=== PATIENT | female | born 1950 | race Caucasian/White ===

== ENCOUNTER 2025-03-21 01:16 | Emergency (ER) | payer MEDICARE, SELFPAY ==
[2025-03-21 01:25] VITALS: BP 167/84; PULSE 86; RESP 18; TEMP 37.2; O2SAT 95; BMI 46.9
--- NOTE | 2025-03-21 01:34 | CRLHL7_ITS ---
For Patients: As a result of the Century Cures Act, medical imaging exams and procedure reports are released immediately into your electronic medical record. You may view this report before your referring provider. If you have questions, please contact your health care provider. Indication: Diffuse pain, history of CLL Technique: CT through the abdomen and pelvis following 118 mL Isovue 370 IV contrast Comparison: None Findings: Lower chest: Bibasilar atelectasis and/or scarring. Few small pulmonary nodules noted measuring up to 4 millimeters, no dedicated follow-up recommended. Hepatobiliary: No significant parenchymal abnormality is appreciated. Benign hepatic cysts noted. Cholecystectomy. Spleen: Lobulated spleen, otherwise unremarkable. Pancreas: No acute parenchymal abnormality is appreciated. Adrenal glands: No acute abnormality appreciated. Kidneys: No significant parenchymal abnormality appreciated. No visualized calculi. No hydronephrosis. Bowel: No obstruction. Duodenal wall thickening with adjacent stranding and fluid, adjacent to the pancreatic head and uncinate process. The appendix is visualized and appears unremarkable. Vascular: Calcified atherosclerosis. Lymph nodes: No gross lymphadenopathy. Peritoneum: Upper mesenteric fluid. : No acute abnormality appreciated. Soft tissues: No acute abnormality appreciated. Bones: No acute fracture. No lytic or blastic lesion. Degenerative changes of the spine and pelvis. Impression: There is stranding and free fluid noted in the upper mesentery. This is adjacent to the pancreatic head and uncinate process as well as the distal duodenum, with the duodenum demonstrating mild wall thickening and stranding. Differential includes duodenitis versus pancreatitis of the head and uncinate process. No other acute abnormality appreciated. Please note that all CT scans at this facility use dose modulation, iterative reconstruction, and/or weight-based dosing when appropriate to reduce radiation dose to as low as reasonably achievable. Dictated by Russell Traore MD @ 03/21/2025 2:29:36 AM (Electronically Signed)
--- NOTE | 2025-03-21 01:37 | ED_ITS ---
HPI - General Adult General Date Seen: 03/21/25 Chief complaint: Abdominal Pain Stated complaint: stomach pain Time Seen by Provider: 03/21/25 01:21 History of Present Illness HPI narrative: Patient is a 74-year-old woman here with her for evaluation of diffuse burning abdominal pain with radiation to the back that started several hours prior to coming in. She has no prior history of similar pain, denies any other symptoms such as nausea, vomiting, diarrhea, constipation, urinary symptoms, chest pain, difficulty breathing, fevers, etcetera. She has a history of cholecystectomy, no other abdominal surgeries. She has a history of diabetes, CLL. Other medical history reviewed. She typically gets her care at [facility], has never been here before but says that she does not like [place] so they came here tonight instead. No medications taken at home. She does not smoke and says she never drinks. Related Data Home Medications ?Medication ?Instructions ?Recorded ?Confirmed aspirin 81 mg capsule 81 mg PO DAILY 03/21/25 03/21/25 atenolol 50 mg tablet 50 mg PO DAILY 03/21/25 03/21/25 atorvastatin 20 mg tablet 20 mg PO QHS 03/21/25 03/21/25 chlorthalidone 25 mg tablet 25 mg PO DAILY 03/21/25 03/21/25 Previous Rx's ?Medication ?Instructions ?Recorded omeprazole 40 mg capsule,delayed 40 mg PO DAILY #30 caps 03/21/25 release Allergies Allergy/AdvReac Type Severity Reaction Status Date / Time metformin AdvReac Intermediate Diarrhea Verified 03/21/25 01:29 hydromorphone AdvReac Mild Nausea/Vomi Verified 03/21/25 01:29 ting Review of Systems Status of ROS: Reports: 10 or more systems reviewed and unremarkable except as noted in History and below [facility] Medical History (Updated 03/21/25 @ 02:37 by Kortney Jones MD) Type 2 diabetes mellitus without complication, without long-term current use of insulin ?E11.9 - Type 2 diabetes mellitus without complications (ICD-10) Chronic lymphocytic leukemia of 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 having achieved remission ?C91.10 - Chronic lymphocytic leukemia of 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 having achieved remission (ICD-10) Osteoarthritis of knees, bilateral ?M17.0 - Bilateral primary osteoarthritis of knee (ICD-10) 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 - Small cell B-cell lymphoma, unspecified site (ICD-10) PONV (postoperative nausea and vomiting) ?R11.2 - Nausea with vomiting, unspecified (ICD-10) ?Z98.890 - Other specified postprocedural states (ICD-10) Morbid obesity ?E66.01 - Morbid (severe) obesity due to excess calories (ICD-10) Hypertension ?I10 - Essential (primary) hypertension (ICD-10) Hyperlipidemia ?E78.5 - Hyperlipidemia, unspecified (ICD-10) Surgical History History of revision of total knee arthroplasty ?Z96.659 - Presence of unspecified artificial knee joint (ICD-10) History of total knee arthroplasty ?Z96.659 - Presence of unspecified artificial knee joint (ICD-10) History of joint replacement ?Z96.60 - Presence of unspecified orthopedic joint implant (ICD-10) History of colonoscopy ?Z98.890 - Other specified postprocedural states (ICD-10) History of cholecystectomy ?Z90.49 - Acquired absence of other specified parts of digestive tract (ICD- 10) History of cataract surgery ?Z98.49 - Cataract extraction status, unspecified eye (ICD-10) Social History Smoking Status: Never smoker Second hand tobacco smoke exposure: No How often do you have a drink containing alcohol: never AUDIT-C Alcohol total score: 0 Non-prescribed substance use: denies use Exam Narrative: Exam Narrative: Vital signs reviewed In general, alert, nontoxic Elderly woman. She looks comfortable. Head: Normocephalic, atraumatic. Eyes: Sclera clear. Pupils equal and reactive. ENT: Mucous membranes moist. Neck: Supple without adenopathy. Heart: Regular rate and rhythm without murmur. Lungs: Clear. No increased work of breathing, crackles or wheezes. Abdomen: Soft, nontender to palpation. No distention, normal bowel sounds. No rebound guarding or rigidity. Extremities: Well perfused, pulses intact. No significant edema. Neurologic: Alert, conversant. Speech fluent, face symmetric. Moves all extremities equally. Skin: Warm, dry well perfused. Affect: Normal. Const: Vital Signs, click to edit/add: Vital Signs - 24 hr 03/21/25 01:25 03/21/25 01:47 03/21/25 02:06 Temperature 99.0 F Pulse Rate 85 Pulse Rate [Pulse Oximeter] 86 Respiratory Rate 18 18 Blood Pressure 138/94 H Blood Pressure [Ri ght Upper Arm] 167/84 H Pulse Oximetry 95 95 94 Oxygen Delivery Me thod Room Air 03/21/25 02:08 Temperature 99.0 F Pulse Rate Pulse Rate [Pulse Oximeter] 84 Respiratory Rate 18 Blood Pressure Blood Pressure [Ri ght Upper Arm] 145/95 H Pulse Oximetry 95 Oxygen Delivery Me thod Room Air Course Course ED Course: An IV was placed, she was given 15 mg of Toradol, 500 mL of normal saline and 4 mg of Zofran. I ordered basic labs including a lipase, LFTs, UA was done as well. CT scan of the abdomen was done in addition. Diagnostic considerations would include retained gallstone, pancreatitis, gastritis or perforated viscus, diverticulitis, kidney stone, appendicitis, bowel obstruction among others. Her labs were notable for mildly elevated white blood cell count of 13.8 with the left shift with 83% neutrophils. Her hemoglobin was normal. Metabolic panel was normal LFTs were normal. CRP mildly elevated at 5.3. Urinalysis was notable for 10-25 white blood cells, moderate squames and sediment. Difficult to interpret this in the absence of any urinary symptoms. I reviewed her CT scan, she had some stranding near the pancreas, but her lipase was normal, radiology read her CT as showing stranding of the pancreas and the duodenum with a differential to include duodenitis or pancreatitis. Overall, symptoms I think are more suggestive of duodenitis, I have given her some Protonix here as well as a GI cocktail, have discussed that right now I suspect duodenitis rather than pancreatitis, but we reviewed reasons to return such as worsening or severe pain, vomiting, fevers etcetera. I have given her prescription for Prilosec. Recommend primary care follow-up in a week or 2 for recheck, endoscopy recommended if not improving. Return to the ER at any time for worsening. [place] diet, avoidance of GI triggers such as NSAIDs, alcohol etcetera. Vital Signs Vital signs: Initial Vital Signs Temperature 99.0 F 03/21/25 01:25 Temperature Source Temporal Artery Scan 03/21/25 01:25 Pulse Rate 86 03/21/25 01:25 Pulse Rhythm Regular 03/21/25 01:25 Respiratory Rate 18 03/21/25 01:25 Blood Pressure 167/84 H 03/21/25 01:25 Blood Pressure Mean 111 H 03/21/25 01:25 Blood Pressure Position Sitting 03/21/25 01:25 Pulse Oximetry 95 03/21/25 01:25 Oxygen Delivery Method Room Air 03/21/25 01:25 Vital Signs Temperature 99.0 F 03/21/25 01:25 Pulse Rate 86 03/21/25 01:25 Respiratory Rate 18 03/21/25 01:25 Blood Pressure 167/84 H 03/21/25 01:25 Pulse Oximetry 95 03/21/25 01:25 Oxygen Delivery Method Room Air 03/21/25 01:25 Temperature 99.0 F 03/21/25 02:08 Pulse Rate 84 03/21/25 02:08 Respiratory Rate 18 03/21/25 02:08 Blood Pressure 145/95 H 03/21/25 02:08 Pulse Oximetry 95 03/21/25 02:08 Oxygen Delivery Method Room Air 03/21/25 02:08 Medications Administered Medications: Generic Name Dose Route Start Last Admin Trade Name Freq PRN Reason Stop Dose Admin Lidocaine/Aluminum/Magnesium/Simeth 30 ml 03/21/25 02:31 03/21/25 02:38 Gi Cocktail (Visc Lido/Antacid) 30 Ml PO 03/21/25 02:32 30 ml ONCE ONE Administration Ondansetron HCl 4 mg 03/21/25 02:02 03/21/25 02:05 Ondansetron 2 Mg/Ml Inj IVP 03/21/25 02:03 4 mg ONCE ONE Administration Pantoprazole Sodium 40 mg 03/21/25 02:30 03/21/25 02:38 Pantoprazole Sodium 40 Mg Inj IVP 03/21/25 02:31 40 mg ONCE ONE Administration Discontinued Medications Generic Name Dose Route Start Last Admin Trade Name Freq PRN Reason Stop Dose Admin Sodium Chloride 500 mls @ 500 mls/hr 03/21/25 01:34 03/21/25 02:24 0.9 % Sodium Chloride 500 Ml IV 03/21/25 02:33 Infused .Q1H ONE Infusion Ketorolac Tromethamine 15 mg 03/21/25 01:34 03/21/25 01:40 Ketorolac 15 Mg/Ml Inj IVP 03/21/25 01:35 15 mg ONCE ONE Administration Medical Decision Making Lab Data Labs: Lab Results 03/21/25 03/21/25 03/21/25 Range/Units 01:40 01:45 02:00 WBC 13.78 H (4.50-11.00) K/uL RBC 4.42 (4.00-5.20) m/uL Hgb 14.4 (12.0-16.0) gm/dL Hct 43.9 (33.0-51.0) % MCV 99 (80-100) fL MCH 33 (26-34) pg MCHC 33 (32-36) gm/dL RDW Coeff of [place] 15.0 (11.5-15.5) % Plt Count 378 (140-440) K/uL Neut % (Auto) 83.1 H (42.0-72.0) % Lymph % (Auto) 7.2 L (20-44) % [place] % (Auto) 7.2 (0.0-11.0) % Eos % (Auto) 1.7 (0.0-7.0) % Baso % (Auto) 0.4 (0.0-3.0) % Neut # (Auto) 11.50 H (1.7-7.0) K/uL Lymph # (Auto) 1.00 (0.90-2.90) K/uL [place] # (Auto) 1.00 H (0.00-0.90) K/UL Eos # (Auto) 0.20 (0.00-0.50) K/uL Baso # (Auto) 0.10 (0.00-0.30) K/uL Abs Immat Gran (auto) 0.10 (0.00-0.30) K/uL Imm/Tot Granulo (auto) 0.4 % Sodium 136 (135-149) mmol/L Potassium 4.0 (3.6-5.1) mmol/L Chloride 99 (96-114) mmol/L Carbon Dioxide 29 (20-32) mmol/L Anion Gap 8 (7-15) mEq/L BUN 18 (7-30) mg/dL Creatinine 0.7 (0.5-1.5) mg/dL Estimated Creat Clear 34.38 Estimated GFR 90 ml/min Glucose 131 H (60-115) mg/dL Lactate 1.8 (0.5-1.9) mmol/L Calcium 9.6 (8.4-10.6) mg/dL Total Bilirubin 1.2 (0.1-1.5) mg/dL Direct Bilirubin 0.4 (0.0-0.5) mg/dL AST 30 (12-35) U/L ALT 20 (4-35) U/L Alkaline Phosphatase 94 (40-150) U/L C-Reactive Protein 5.3 H (0.5-1.0) mg/dL Total Protein 7.3 (6.0-8.3) g/dL Albumin 4.4 (3.3-5.0) g/dL Lipase 224 (23-300) U/L Urine Color Yellow (Yellow) Urine Appearance Cloudy A (Clear) Urine pH 8.0 (5.0-8.5) Ur Specific [place] 1.015 (1.000-1.030) Urine Protein Negative (Negative) Urine Glucose (UA) Negative (Negative) Urine Ketones Negative (Negative) Urine Blood Trace-intact A (Negative) Urine Nitrite Negative (Negative) Urine Bilirubin Negative (Negative) Urine Urobilinogen 1.0 (0.2-1.0) Ur Leukocyte Esterase 2+ A (Negative) Urine RBC 0-2 (0-2) Urine WBC 10-25 A (0-5) Ur Squamous Epith Cells Moderate A (None-Few) Amorphous Sediment Few A (None) Urine Bacteria Moderate A (None) POC Creatinine 0.8 (0.6-1.3) mg/dl Imaging Data CT scan - abdomen: Attestation: I have reviewed the pertinent imaging results. Radiologist's impression: Patient: Nora Hernandez MR#: [id number] : 1950 Acct:[id number] Loc: ED Service Date: 03/21/[address]: Ordering Physician: Kortney Jones M.D. Date of Service: 03/21/25 Procedure(s): CT abdomen pelvis w con Accession Number(s): [id number] cc: Kortney Jones M.D.; Jagruti Angelo M.D.~ For Patients: As a result of the Cures Act, medical imaging exams and procedure reports are released immediately into your electronic medical record. You may view this report before your referring provider. If you have questions, please contact your health care provider. Indication: Diffuse pain, history of CLL Technique: CT through the abdomen and pelvis following 118 mL Isovue 370 IV contrast Comparison: None Findings: Lower chest: Bibasilar atelectasis and/or scarring. Few small pulmonary nodules noted measuring up to 4 millimeters, no dedicated follow-up recommended. Hepatobiliary: No significant parenchymal abnormality is appreciated. Benign hepatic cysts noted. Cholecystectomy. Spleen: Lobulated spleen, otherwise unremarkable. Pancreas: No acute parenchymal abnormality is appreciated. Adrenal glands: No acute abnormality appreciated. Kidneys: No significant parenchymal abnormality appreciated. No visualized calculi. No hydronephrosis. Bowel: No obstruction. Duodenal wall thickening with adjacent stranding and fluid, adjacent to the pancreatic head and uncinate process. The appendix is visualized and appears unremarkable. Vascular: Calcified atherosclerosis. Lymph nodes: No gross lymphadenopathy. Peritoneum: Upper mesenteric fluid. : No acute abnormality appreciated. Soft tissues: No acute abnormality appreciated. Bones: No acute fracture. No lytic or blastic lesion. Degenerative changes of the spine and pelvis. Impression: There is stranding and free fluid noted in the upper mesentery. This is adjacent to the pancreatic head and uncinate process as well as the distal duodenum, with the duodenum demonstrating mild wall thickening and stranding. Differential includes duodenitis versus pancreatitis of the head and uncinate process. No other acute abnormality appreciated. Please note that all CT scans at this facility use dose modulation, iterative reconstruction, and/or weight-based dosing when appropriate to reduce radiation dose to as low as reasonably achievable. Dictated by Russell Traore MD @ 03/21/2025 2:29:36 AM Discharge Plan Discharge Clinical Impression: Duodenitis Patient Disposition: Home, Self-Care Condition: Improved Instructions: Duodenitis (ED) Additional Instructions: I am recommending that you start a medicine called Prilosec, which is an acid reducing medicine that helps with inflammation in the upper GI tract such as gastritis or duodenitis. Please make an appointment to follow-up with your primary doctor in the next week or 2. If your symptoms are improving, you may not need further evaluation, but if not, an upper endoscopy can be arranged through your primary doctor. I suspect that your symptoms are related to duodenitis, as of right now I do not have specific reason to suspect pancreatitis. However, if your pain worsens or becomes severe, if you have vomiting, if you vomit blood, have high fevers, or worsened in any significant way, please return to the emergency department at any time. Keep your diet fairly bland over the next few days. Avoid ears for gastritis/duodenitis such as ibuprofen or other NSAIDs, alcohol, and any dietary triggers that seem to worsen your abdominal pain. Prescriptions: New omeprazole 40 mg capsule,delayed release(DR/EC) 40 mg PO DAILY Qty: 30 2RF No Action chlorthalidone 25 mg tablet 25 mg PO DAILY atorvastatin 20 mg tablet 20 mg PO QHS atenolol 50 mg tablet 50 mg PO DAILY aspirin 81 mg capsule 81 mg PO DAILY Follow Up/Referrals: Jagruti Angelo MD [Primary Care Provider] - Stand Alone Forms: fitogram Info Instructions
[2025-03-21] MEDS: 0.9 % SODIUM CHLORIDE 500 ML 500 ML IV (01:40)
[2025-03-21] MEDS: KETOROLAC 15 MG/ML inj IVP (01:40)
[2025-03-21 01:47] VITALS: O2SAT 95
[2025-03-21 01:47] LABS: Creatinine, Point-of-Care* 0.8 mg/dl (0.6-1.3)
[2025-03-21 01:48] LABS: Basophils Percent Auto 0.4 % (0.0-3.0); Eosinophils Percent Auto 1.7 % (0.0-7.0); Hematocrit* 43.9 % (33.0-51.0); Hemoglobin* 14.4 gm/dL (12.0-16.0); Immature Granulocytes Pct Auto 0.4 %; Lymphocytes Percent Auto 7.2 % (20-44); Mean Corpuscular HGB Conc 33 gm/dL (32-36); Mean Corpuscular Hemoglobin 33 pg (26-34); Mean Corpuscular Volume 99 fL (80-100); Monocytes Percent Auto 7.2 % (0.0-11.0); Neutrophils Percent Auto 83.1 % (42.0-72.0); Platelet Count* 378 K/uL (140-440); Red Blood Count* 4.42 m/uL (4.00-5.20); White Blood Count* 13.78 K/uL (4.50-11.00)
[2025-03-21 01:49] LABS: Lactate Sepsis w/Reflex* 1.8 mmol/L (0.5-1.9)
--- OUTSIDE RECORDS SUMMARY | 2025-03-21 01:55 | XMS_ITS | Clinical Summary ---
Author Organization [facility] Address [address] [place] [id number] Care Team Providers Care Linter Saw Sharpener Name Role Phone Jagruti Angelo MD Primary Care Provider [phone] Allergies Active Allergy Reactions Criticality Noted Date Comments Hydromorphone Nausea And Vomiting 07/16/2013 Metformin Diarrhea 03/13/2025 Medications ASCORBATE CALCIUM (VITAMIN C ORAL) Take 500 mg by mouth once daily. Active Calcium-Cholecalc iferol, D3, (CALCIUM 600 WITH VITAMIN D3) 600 mg(1,500mg) -400 unit cap Take 1 Cap by mouth once daily. Active aspirin (ECOTRIN) 81 mg enteric coated tablet Take 81 mg by mouth once daily with a meal. Active blood-glucose meterIndications: Prediabetes As directed. Dispense meter, #100 test strips with 3 refills, #100 lancets with 3 refills. covered by pt ins. Prediabetes , testing 1x daily 1 Each 07/20/20 22 Active Accu-Chek Guide Glucose Meter use to test blood sugar once daily 07/21/20 22 Active ketoconazole 2% shampoo (NIZORAL) 2 % shampooIndication s:Seborrheic dermatitis 2-3 times per week: lather on to damp scalp, leave on for 5-10 minutes, then rinse out well with water. 120 mL 11 08/04/20 23 Active lancets (Accu-Chek Softclix Lancets)Indicatio ns:Type 2 diabetes mellitus without complication, without long-term current use of insulin (HC) USE TO TEST BLOOD SUGAR ONCE DAILY 100 Each 12/13/19 Active blood sugar diagnostic (Accu-Chek Guide test strips) stripIndications: Type 2 diabetes mellitus without complication, without long-term current use of insulin (HC) USE TEST BLOOD SUGAR ONCE DAILY 100 Each 12/13/19 Active chlorthalidone 25 mg tabletIndications :HTN (hypertension) Take 1 Tablet (25 mg) by mouth once daily. 90 Tablet 1 03/13/20 25 Active atenoloL 50 mg tabletIndications :HTN (hypertension) Take 1 Tablet (50 mg) by mouth once daily. 90 Tablet 1 03/13/20 25 Active atorvastatin 20 mg tabletIndications :Mixed hyperlipidemia Take 1 Tablet (20 mg) by mouth at bedtime. 100 Tablet 03/18/20 25 Active atenoloL (TENORMIN) 50 mg tabletIndications :HTN (hypertension) Take 1 Tablet (50 mg) by mouth once daily. 90 Tablet 3 01/31/20 24 025 Discontinued atorvastatin (LIPITOR) 10 mg tabletIndications :Mixed hyperlipidemia Take 1 Tablet (10 mg) by mouth at bedtime. 90 Tablet 3 01/31/20 24 025 Discontinued(R eorder (E-cancel not sent)) chlorthalidone (HYGROTON) 25 mg tabletIndications :HTN (hypertension) Take 1 Tablet (25 mg) by mouth once daily. 90 Tablet 3 01/31/20 24 025 Discontinued(R eorder (E-cancel not sent)) atenoloL 50 mg tabletIndications :HTN (hypertension) TAKE 1 TABLET BY MOUTH ONE TIME DAILY 90 Tablet 03/11/20 25 025 Discontinued(R eorder (E-cancel not sent)) atorvastatin 10 mg tabletIndications :Mixed hyperlipidemia Take 1 Tablet (10 mg) by mouth at bedtime. 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 8 Osteoarthritis of knee 07/03/2018 Hypertension 03/01/2018 Morbid obesity 03/01/2018 Prediabetes 12/28/2012 Cataract 09/22/2012 Resolved Problems Problem Noted Date Diagnosed Date Resolved Date HLD (hyperlipidemia) 03/01/2018 023 Hypercholesterolemia 09/22/2012 023 Osteoarthritis of knees, bilateral 04/04/2023 Encounters Date Type Department Care Team Description 03/13/2025 10:05 AM CDT Office Visit [facility] [id number] [place] [phone] Jagruti Angelo MD Medicare ANNUAL (subsequent) Visit (--Fasting); Screening (--colonoscopy) 03/13/2025 Travel 03/11/2025 Refill [facility] [id number] [place] [phone] Jagruti Angelo MD Refill Request (Atenolol) from Last 3 Months Immunizations Immunization Administration Dates Next Due COVID-19 vaccine (eTelemetry 30mcg/0.3mL) P F, MDV 11/16/2021 Pneumococcal Poly,23-Valent (Pneumovax) 08/07/20 19 Pneumococcal conj 13-Valent (Prevnar 13) 016 Td, Preservative Free (age >= 7 Years) 6 Tdap 04/28/2015 Zoster (Zostavax-ZVL, live) 12/05/2013 Family History Medical History Relation Name Comments Heart attack Brother 1 d/c MVA Coronary artery disease Brother 2 Other Father 96 y.o eat ing breakfast COPD Mother Cancer-breast Other MatCousin No Known Problems Sister 2 Relation Name Status Comments Brother 1 Brother 2 Father Mother Other MatCousin Alive Sister 1 Sister 2 Social History Tobacco Use Types Packs/Day Years Used Date Smoking Tobacco: Never Smokeless Tobacco: Never Alcohol Use Standard Drinks/Week Comments Not Currently 0 (1 standard drink = 0.6 oz pur e alcohol) PHQ-2 Answer Date Recorded PHQ-2 TOTAL SCORE 0 03/13/2025 Social Connections Answer Date Recorded Do you often feel lonely or isolated from those around you? 0 03/13/2025 Financial Resource Strain Answer Date R ecorded Difficulty of Paying Living Expenses 3 03/13/2025 Difficulty of Paying Living Expenses Not on file 03/13/2025 Food Insecurity Answer Date Recorded Do you worry your food will run out before you are able to buy more? 1 03/13/2025 Transportation Needs Answer Date Record ed Does lack of transportation keep you from medica l appointments? 1 03/13/2025 Does lack of transportation keep you from work, meetings or getting things that you need? 1 03/13/2025 Housing Stability Answer Date Recorded What is your housing situation today? 1 03/13/2025 Utilities Answer Date Recorded Do you have trouble paying f or utilities (for example, heat, electricity, water, phone)? 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 Gender Identity Not on file Sexual Orientation Not on file Obstetrics History Para Term AB IAB SAB Ectopic Multiple Livin g Live Births 3 3 Date Outcome GA Total Labor Labor/2nd/3rd Weight Sex Type Anes PTL Monserrat A1 A5 Name Clin Para Para Para Last Filed Vital Signs Vital Sign Reading Time Taken Comments Blood Pressure 136/76 03/13/2025 10:23 AM CDT Pulse 77 03/13/2025 9:51 AM CDT Temperature 36.2 C (97.2 F) 08/05/2024 8:19 AM CDT Respiratory Rate 16 08/05/2024 8:19 AM CDT Oxygen Saturation 96% 03/13/2025 9:51 AM CDT Inhaled Oxygen Concentration - - Weight 109 kg (240 lb 3.2 oz) 03/13/2025 9:51 AM CDT Height 152.5 cm (5' 0.04) 03/13/2025 9:51 AM CD T Body Mass Index 46.85 03/13/2025 9:51 AM CDT Plan of Treatment Health Maintenance Due Date Last Done Comments Hepatitis C screening for ag e 18-79 1968 Zoster (shingles) series for age 50+ (1 of 2) 01/30/2014 12/05/2013 RSV vaccine for adults or (1 - 1-dose 75+ series) 2023 COVID-19 vaccine series ( season) 2024 11/16/2021, 02/20/2021, 01/30/2021 Tetanus booster 04/28/2025 04/28/2015, 12/31/2005 Influenza Vaccine (Season Ended) 2025 BMI (ht and wt on same day) for age 18+ 03/13/2026 03/13/2025, 08/05/2024, 07/11/2024, Additional history exists Depression screening for age 12+ 03/13/2026 03/13/2025, 01/31/2024, 07/20/2022 Medicare Wellness for age 65+ 03/14/2026, 01/31/2024, 07/20/2022 Tdap Completed 04/28/2015 Pneumococcal series for age 50+ Completed 9, 08/31/2016 DEXA/DXA scan for age 65+ Completed 2023, 12/15/2020 (Verified in Care Everywhere or Patient Record) Medical Devices Implanted Type Area Television Program Director Device Identifier Shelf Expiration Date Model / Serial / Lot Cmnt Bone Simplex Hv Gentamicin - [id number] Implanted:Qty: 2 on 03/01/2018 by Paul Weber MD at [facility] Left: Knee [employer] 06/20/2019 6195-1-001 # / / [id number] Baseplate Tib Sz2.5 Lcs Complete Pe Nonpors - [id number] Implanted:Qty: 1 on 03/01/2018 by Paul Weber MD at [facility] Left: Knee [employer] 12/21/2027 5# / / [id number] Stem Knee [id number] Pfc Sigma Fluted - [id number] Implanted:Qty: 1 on 03/01/2018 by Paul Weber MD at [facility] Left: Knee [employer] 02/18/2027 [id number]# / / [id number] Augment Knee Lt Sz2.5 4mm Pfcsigma - [id number] Implanted:Qty: 1 on 03/01/2018 by Paul Weber MD at [facility] Left: Knee [employer] 10/20/2024 [id number]# / / [id number] Insert Knee Sz2.5 22.5mm Pfc Sigma Tc3 Rotating Platform - [id number] Implanted:Qty: 1 on 03/01/2018 by Paul Weber MD at [facility] Left: Knee [employer] 05/20/2022 [id number]# / / [id number] Adptr Knee 5 Deg Pfc Sigma Titnm - [id number] Implanted:Qty: 1 on 03/01/2018 by Paul Weber MD at [facility] Left: Knee [employer] 02/19/2028 96-0781# / / [id number] Adptr Fem [place] [employer] +2/-2 Offset - [id number] Implanted:Qty: 1 on 03/01/2018 by Paul Weber MD at [facility] Left: Knee [employer] 11/20/2027 96-0784# / / [id number] Sleeve Knee 31mm Mbt Univ Pors - [id number] Implanted:Qty: 1 on 03/01/2018 by Paul Weber MD at [facility] Left: Knee [employer] 01/18/2027 6# / / [id number] Fem Lt Sz2.5 Pfc Sigma Poststbz Co Cr - [id number] Implanted:Qty: 1 on 03/01/2018 by Paul Weber MD at [facility] Left: Knee [employer] 10/20/2027 96-0086# / / [id number] Augment Post Knee Sz2.5 4mm Pfc Sigma - [id number] Implanted:Qty: 1 on 03/01/2018 by Paul Weber MD at [facility] Left: Knee [employer] 07/21/2027 [id number]# / / [id number] Sleeve Knee 37mm Mbt Mobile [employer]earing Pors - [id number] Implanted:Qty: 1 on 03/01/2018 by Paul Weber MD at [facility] Left: Knee [employer] 10/20/2027 0# / / [id number] Stem Knee 66i91cf Pfc Sigma Fluted - [id number] Implanted:Qty: 1 on 03/01/2018 by Paul Weber MD at [facility] Left: Knee [employer] 05/20/2027 [id number]# / / [id number] Cmnt Bone Simplex Hv Gentamicin - [id number] Implanted:Qty: 2 on 07/12/2018 by Paul Weber MD at [facility] Right: Knee [employer] 01/18/2019 6195-1-001 # / / [id number] Augment Knee Rt Sz2.5 4mm Pfcsigma - [id number] Implanted:Qty: 1 on 07/12/2018 by Paul Weber MD at [facility] Right: Knee [employer] 05/20/2027 [id number]# / / [id number] Augment Knee Rt Sz2.5 4mm Pfcsigma - [id number] Implanted:Qty: 1 on 07/12/2018 by Paul Weber MD at [facility] Right: Knee [employer] 10/20/2027 [id number]# / / [id number] Adptr Knee 5 Deg Pfc Sigma Titnm - [id number] Implanted:Qty: 1 on 07/12/2018 by Paul Weber MD at [facility] Right: Knee [employer] 05/20/2028 96-0781# / / [id number] Sleeve Knee 37mm Mbt Mobile Bearing Pors - [id number] Implanted:Qty: 1 on 07/12/2018 by Paul Weber MD at [facility] Right: Knee [employer] 01/19/2028 0# / / [id number] Adptr Fem [employer] [employer] +2/-2 Offset - [id number] Implanted:Qty: 1 on 07/12/2018 by Paul Weber MD at [facility] Right: Knee [employer] 01/19/2028 96-0784# / / [id number] Baseplate Tib Sz2 Lcs Completepe Nonpors - [id number] Implanted:Qty: 1 on 07/12/2018 by Paul Weber MD at [facility] Right: Knee [employer] 12/21/2027 0# / / [id number] Fem Rt Sz2.5 Pfc Sigma Poststbz Co Cr - [id number] Implanted:Qty: 1 on 07/12/2018 by Paul Weber MD at [facility] Right: Knee [employer] 12/21/2027 96-0092# / / [id number] Stem Knee 64v90jo Pfc Sigma Fluted - [id number] Implanted:Qty: 1 on 07/12/2018 by Paul Weber MD at [facility] Right: Knee [employer] 04/20/2026 [id number]# / / [id number] Stem Knee 62y48ko Pfc Sigma Fluted - [id number] Implanted:Qty: 1 on 07/12/2018 by Paul Weber MD at [facility] Right: Knee [employer] 09/20/2027 [id number]# / / [id number] Description:[place] Stem F luted 75mm x 12 mm Sleeve Knee 31mm Mbt Univ Pors - [id number] Implanted:Qty: 1 on 07/12/2018 by Paul Weber MD at [facility] Right: Knee [employer] 11/20/2027 6# / / [id number] Augment Post Knee Sz2.5 4mm Pfc Sigma - [id number] Implanted:Qty: 1 on 07/12/2018 by Paul Weber MD at [facility] Right: Knee [employer] 09/20/2023 [id number]# / / [id number] Tib Insrt Rp Tc3 Sz2.5/17.5mm Gvf Implanted:Qty: 1 on 07/12/2018 by Paul Weber MD at [facility] Right: Knee [employer] 03/20/2022 [id number] / / [id number] Description:Sigma Tibial Ins ert Totating Platform TC3 Size 2.5 17.5mm GVF Explanted Type Area Television Program Director Device Identifier Shelf Expiration Date Model / Serial / Lot Femoral And Tibial Components Explanted:Qty: 1 on 03/01/2018 by Paul Weber MD at [facility] Left: Knee 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 [employer] Component, Tibial Baseplate & Insert Explanted:Qty: 3 on 07/12/2018 by Paul Weber MD at [facility] Right: Knee Description:Nadya patella l eft in patient Procedures Procedure Name Priority Date/Time Associated Diagnosis Comments HEMOGLOBIN A1C MONITORING (POCT) Routine 03/13/2025 10:36 AM CDT Type 2 diabetes mellitus without complication, without long-term current use of insulin (HC) UA W/ SEDIMENT EXAM REFLEXED PER CRITERIA STAT 03/13/2025 10:36 AM CDT Urinary frequency COMP METABOLIC PANEL Routine 03/13/2025 10:34 AM CDT Type 2 diabetes mellitus without complication, without long-term current use of insulin (HC) LIPID PANEL W REFLEX MEASURED LDL Routine 03/13/2025 10:34 AM CDT Type 2 diabetes mellitus without complication, without long-term current use of insulin (HC) TSH WITH REFLEX Routine 03/13/2025 10:34 AM CDT Type 2 diabetes mellitus without complication, without long-term current use of insulin (HC) URINE CULTURE Routine 03/13/2025 10:32 AM CDT Urinary frequency URINE ALBUMIN TO CREATININE RATIO, RANDOM Routine 03/13/2025 10:32 AM CDT Type 2 diabetes mellitus without complication, without long-term current use of insulin (HC) XR DXA BONE DENSITY 2 SITES AXIAL Routine 01/31/2024 9:48 AM CDT Menopause from Last 3 Months or Most Recently Relevant to Health Maintenance Results * (ABNORMAL) UA W/ SEDIMENT EXAM REFLEXED PER CRITERIA (03/13/2025 10:36 AM CDT) COLOR YELLOW YELLOW [facility] (U APPEARANCE CLEAR CLEAR [facility] (U SPECIFIC GRAVITY 1.020 1.001 - 1.035 [facility] (U PH 7.0 5.0 - 8.0 [facility] (U GLUCOSE NEGATIVE NEGATIVE [facility] (U BILIRUBIN NEGATIVE NEGATIVE [facility] (U KETONES NEGATIVE NEGATIVE [facility] (U OCCULT BLOOD TRACE(A) NEGATIVE [facility] (U PROTEIN NEGATIVE NEGATIVE [facility] (U NITRITE NEGATIVE NEGATIVE [facility] (U LEUKOCYTE ESTERASE 1+(A) NEGATIVE [facility] (U WBC UA 0-5 < OR = 5 /HPF [facility] (U RBC UA 0-2 < OR = 2 /HPF [facility] (U SQUAMOUS EPITHELIAL CELLS UA 0-5 < OR = 5 /HPF [facility] (U BACTERIA UA FEW(A) NONE SEEN /HPF [facility] (U NOTE UA [facility] (U Comment: This urine was analyzed for the presence of WBC, RBC, bacteria, casts, and other formed elements. Only those elements seen were reported. Urine URINE SPECIMEN / Unknown 03/13/2025 10:36 AM CDT 03/13/2025 10:36 AM CDT Jagruti Angelo MD URINE Final Result [facility] [address] [place] [address], [facility] (U [address] [place] [address] * (ABNORMAL) HEMOGLOBIN A1C MONITORING (POCT) (03/13/2025 10:36 AM CDT) Pathologist [facility] POC HEMOGLOBIN A1C 6.4(H) <6.0 % OF TOTAL HGB [facility] (U Comment: Any point of care results exhibiting inconsistency with the patient's clinical status should be repeated using a different testing method. Blood BLOOD SPECIMEN / Unknown 03/13/2025 10:36 AM CDT 03/13/2025 10:36 AM CDT Jagruti Angelo MD CHEMISTRY Final Result [facility] [address] [place] [address], [facility] (U [address] [place] [address] * TSH WITH REFLEX (03/13/2025 10:34 AM CDT) Pathologist [facility] TSH W/REFLEX TO FT4 2.06 0.40 - 4.50 mIU/L [facility] Blood BLOOD SPECIMEN / Unknown 03/13/2025 10:34 AM CDT 03/13/2025 10:35 AM CDT Jagruti Angelo MD CHEMISTRY Final Result [facility] [address] [place] [address], [facility] [address] [place] [address] * (ABNORMAL) LIPID PANEL W REFLEX MEASURED LDL (03/13/2025 10:34 AM CDT) Pathologist [facility] CHOLESTEROL, TOTAL 178 <200 mg/dL [facility] HDL CHOLESTEROL 39(L) > OR = 50 mg/dL [facility] TRIGLYCERIDES 275(H) <150 mg/dL [facility] Comment: If a non-fasting specimen was collected, consider repeat triglyceride testing on a fasting specimen if clinically indicated. Felice et al. J. of Clin. Lipidol. 2015;9:129-169. LDL-CHOLESTEROL 100(H) mg/dL (calc) [facility] Comment: Reference range: <100 Desirable range <100 mg/dL for primary prevention; <70 mg/dL for patients with CHD or diabetic patients with > or = 2 CHD risk factors. LDL-C is now calculated using the Lucy calculation, which is a validated novel method providing better accuracy than the Friedewald equation in the estimation of LDL-C. Lopez DEXTER et al. RODDY. 2013;310(19): 0695-6186 (http://education.[employer]/faq/HTJ985) CHOL/HDLC RATIO 4.6 <5.0 (calc) [facility] NON HDL CHOLESTEROL 139(H) <130 mg/dL (calc) [facility] Comment: For patients with diabetes plus 1 major ASCVD risk factor, treating to a non-HDL-C goal of <100 mg/dL (LDL-C of <70 mg/dL) is considered a therapeutic option. Blood BLOOD SPECIMEN / Unknown 03/13/2025 10:34 AM CDT 03/13/2025 10:35 AM CDT Jagruti Angelo MD CHEMISTRY Final Result [facility] [address] [place] [address], [facility] [address] [place] [address] * (ABNORMAL) COMP METABOLIC PANEL (03/13/2025 10:34 AM CDT) [facility] GLUCOSE 107(H) 65 - 99 mg/dL [facility] Comment: Fasting reference interval For someone without known diabetes, a glucose value between 100 and 125 mg/dL is consistent with prediabetes and should be confirmed with a follow-up test. UREA NITROGEN (BUN) 17 7 - 25 mg/dL [facility] CREATININE 0.78 0.60 - 1.00 mg/dL [facility] EGFR 79 > OR = 60 mL/min/1. 73m2 [facility] BUN/CREATININE RATIO SEE NOTE: - (calc) [facility] Comment: Not Reported: BUN and Creatinine are within reference range. SODIUM 141 135 - 146 mmol/L [facility] POTASSIUM 4.1 3.5 - 5.3 mmol/L [facility] CHLORIDE 101 98 - 110 mmol/L [facility] CARBON DIOXIDE 30 20 - 32 mmol/L [facility] CALCIUM 9.8 8.6 - 10.4 mg/dL [facility] PROTEIN, TOTAL 6.7 6.1 - 8.1 g/dL [facility] ALBUMIN 4.3 3.6 - 5.1 g/dL [facility] GLOBULIN 2.4 1.9 - 3.7 g/dL (calc) [facility] ALBUMIN/GLOBULIN RATIO 1.8 1.0 - 2.5 (calc) [facility] BILIRUBIN, TOTAL 0.7 0.2 - 1.2 mg/dL [facility] ALKALINE PHOSPHATASE 92 37 - 153 U/L [facility] AST 17 10 - 35 U/L [facility] ALT 14 6 - 29 U/L [facility] Blood BLOOD SPECIMEN / Unknown 03/13/2025 10:34 AM CDT 03/13/2025 10:35 AM CDT us Jagruti Angelo MD CHEMISTRY Final Result [facility] [address] [place] [address], [facility] [address] [place] [address] * URINE CULTURE (03/13/2025 10:32 AM CDT) CULTURE <10,000 CFU/mL multiple organisms 03/14/2025 4:57 PM CDT [facility] Urine URINE SPECIMEN / Unknown Non-Blood / Unknown 03/13/2025 10:32 AM CDT 03/13/2025 10:51 AM CDT us Jagruti Angelo MD MICROBIOLOGY Final Result Performing Organization Address City/[facility]/ZIP Co de Phone Number [facility] [address] [address], [place] * URINE ALBUMIN TO CREATININE RATIO, RANDOM (03/13/2025 10:32 AM CDT) ALB RAND URINE 26.7 mg/L 03/13/2025 8:18 PM CDT [facility] CREATININE,URIN E 2.08 g/L 03/13/2025 8:18 PM CDT [facility] ALBUMIN TO CREATININE RATIO,RAND UR 12.8 <30.0 mg/g creat 03/13/2025 8:18 PM CDT [facility] Urine URINE SPECIMEN / Unknown Non-Blood / Unknown 03/13/2025 10:32 AM CDT 03/13/2025 10:51 AM CDT Narrative [facility] - 03/13/2025 8:18 PM CDT If Albumin to Creatinine Ratio is elevated, consider the following: Elevations seen with incipient nephropathy associated with diabetes mellitus or hypertension. Stress, exercise,hematuria, and urinary tract infection may also produce elevated results. If clinically indicated, confirm with 24 Hour Albumin to Creatinine Ratio. us Jagruti Angelo MD URINE Final Result Performing Organization Address City/[facility]/ZIP Co de Phone Number [facility] [address] [address], [place] * XR DXA BONE DENSITY 2 SITES AXIAL (01/31/2024 9:48 AM CDT) Anatomical Region Laterality Modality Spine, HIPS, HIPL, HIPR Computed Radiography 01/31/2024 9:48 AM CDT Impressions 01/31/2024 11:31 AM CDT NORMAL. Bone mineral density measurements are within normal limits using T score. Narrative 01/31/2024 11:31 AM CDT For Patients: As a result of the Cures Act, medical imaging exams and procedure reports are released immediately into your electronic medical record. You may view this report before your referring provider. If you have questions, please contact your health care provider. EXAM: XR DXA BONE DENSITY 2 SITES AXIAL LOCATION: [facility] DATE: 01/31/2024 INDICATION: BMD screening. Follow-up. DEMOGRAPHICS: Age- 73 years. Gender- Female. Menopausal status- Postmenopausal. COMPARISON: 12/15/2020 TECHNIQUE: Dual-energy x-ray absorptiometry (DXA) performed with routine technique. FINDINGS: DXA RESULTS -Lumbar Spine: L1-L4: BMD: 1.444 g/cm2. T-score: 2.2. Z-score: 2.8. -RIGHT Hip Total: BMD: 1.134 g/cm2. T-score: 1.0. Z-score: 1.9. -RIGHT Hip Femoral neck: BMD: 1.184 g/cm2. T-score: 1.1. Z-score: 2.2. -LEFT Hip Total: BMD: 1.203 g/cm2. T-score: 1.5. Z-score: 2.5. -LEFT Hip Femoral neck: BMD: 1.288 g/cm2. T-score: 1.8. Z-score: 3.0. WHO T-SCORE CRITERIA -Normal: T score at or above -1 SD -Osteopenia: T score between -1 and -2.5 SD -Osteoporosis: T score at or below -2.5 SD The World Health Organization (WHO) criteria is applicable to perimenopausal females, postmenopausal females, and men aged 50 years or older. INTERVAL CHANGE -There has been a 0.6% decrease in lumbar spine BMD. -There has been a 0.3% increase in bilateral hip BMD. FRACTURE RISK -The FRAX risk calculator is not applicable due to normal bone mineral density. Procedure Note Martina Brooks PA - 01/31/2024 For Patients: As a result of the Cures Act, medical imagingexams and procedure reports are released immediately into your electronicmedical record. You may view this report before your referring provider.If you have questions, please contact your health care provider. EXAM: XR DXA BONE DENSITY 2 SITES AXIAL LOCATION: [facility] DATE: 01/31/2024 INDICATION: BMD screening. Follow-up. DEMOGRAPHICS: Age- 73 years. Gender- Female. Menopausal status-Postmenopausal. COMPARISON: 12/15/2020 TECHNIQUE: Dual-energy x-ray absorptiometry (DXA) performed with routinetechnique. FINDINGS: DXA RESULTS -Lumbar Spine: L1-L4: BMD: 1.444 g/cm2. T-score: 2.2. Z-score: 2.8. -RIGHT Hip Total: BMD: 1.134 g/cm2. T-score: 1.0. Z-score: 1.9. -RIGHT Hip Femoral neck: BMD: 1.184 g/cm2. T-score: 1.1. Z-score: 2.2. -LEFT Hip Total: BMD: 1.203 g/cm2. T-score: 1.5. Z-score: 2.5. -LEFT Hip Femoral neck: BMD: 1.288 g/cm2. T-score: 1.8. Z-score: 3.0. WHO T-SCORE CRITERIA -Normal: T score at or above -1 SD -Osteopenia: T score between -1 and -2.5 SD -Osteoporosis: T score at or below -2.5 SD The World Health Organization (WHO) criteria is applicable toperimenopausal females, postmenopausal females, and men aged 50 years orolder. INTERVAL CHANGE -There has been a 0.6% decrease in lumbar spine BMD. -There has been a 0.3% increase in bilateral hip BMD. FRACTURE RISK -The FRAX risk calculator is not applicable due to normal bone mineraldensity. IMPRESSION: NORMAL. Bone mineral density measurements are within normal limits using Tscore. Jagruti Angelo MD DEXA Final Result from Last 3 Months or Most Recently Relevant to Health Maintenance Insurance MEDICARE PART A HB ONLY [facility] MR Advance Directives * Full Code (Latest Code Status on File) Date Activated Date Inactivated Comments 05/12/2021 5:55 AM 05/12/2021 12:02 PM Question Answer Comments Code Status Discussion: Discussed * Full Code Date Activated Date Inactivated Comments 07/12/2018 6:40 AM 07/14/2018 1:16 PM * Full Code Date Activated Date Inactivated Comments 03/01/2018 8:11 AM 03/03/2018 1:04 PM Care Teams Linter Saw Shar[employer]er Relationship Specialty [place] [id number] [place] [address] PCP - General Family Practice 05/06/21
--- OUTSIDE RECORDS SUMMARY | 2025-03-21 01:56 | XMS_ITS ---
Author Name Interface, [id number] lity Address [address] [place] [address] [address] [address] [facility] Address [address] [facility] [address] [place] [address] Care Team Providers Care Linen Tech Name Role Phone Gulshan Cali Unavailable Unavailable Allergies and Adverse Reactions Medication/Group Name Reaction Severity Date No known allergies Plan Date Type Value 02/04/2025 APPOINTMENT OV 20 MIN 02/04/2025 APPOINTMENT LAB 15 MIN 05/14/2024 APPOINTMENT OV 20 MIN 05/14/2024 APPOINTMENT LAB 10 MIN 05/14/2024 LABORDER CBC w/ auto diff 05/14/2024 LABORDER LDH panel 05/14/2024 LABORDER CMP 02/04/2025 LABORDER CMP 02/04/2025 LABORDER CBC w/ auto diff 02/04/2025 LABORDER LDH panel Reason for Visit LAB 15 MIN Encounters Date Name 05/14/2024 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 Immunizations Date Name Route Dose Instructions Refusal Reason Stat us Covid-19 vaccine (Pfizer) Diagnostic Results Date Type Test Units Lower Limit Upper Limit Result Flag Comments Status Ordered By Specimen Source Lab Address 05/14 CMP Album in g/dL 3.5 5.0 4.3 FINAL Gulshan Cali * [facility], [address] [facility] [id number] [phone] 05/14 CMP Alkal ine phosp hatas e U/L 36.0 125.0 95 FINAL Gulshan Cali * [facility], [address] [id number] 05/14 CMP ALT/S GPT U/L 0.0 34.0 20 FINAL Gulshan Cali * [facility], [address] [facility] [address] [id number] 05/14 CMP AST/S GOT U/L 14.0 36.0 37 High FINAL Gulhsan Cali * [facility], [facility] [address] [id number] 0 05/14 CMP BUN mg/dL 7.0 17.0 20.0 High FINAL Gulshan Cali * [facility], [facility] [address] [id number] 0 05/14 CMP Calci um mg/dL 8.4 10.2 9.5 FINAL Gulshan Cali * [facility], [facility] [address] [id number] 0 05/14 CMP Chlor hiwot mmol/L 96.0 107.0 98 FINAL Gulshan Cali * [facility], [facility] [address] [id number] 05/14 CMP CO2 mmol/L 22.0 30.0 27 The expected total allowable error for CO2 is 5.6%. We have seen up to 10% differenc e in values if reported at the end of the 96 hour stability window. Please consider the clinical significa nce of a 2.0-2.5 mmol/L lower reported CO2 value if reported at the end of the 96 hour stability window. FINAL Gulshan Cali * [facility], [address] [facility] [address] [id number] 0 05/14 CMP Creat inine mg/dL 0.66 1.25 0.70 FINAL Gulshan Cali * [facility] a [facility], [address] [id number] 0 05/14 CMP GFR estim ate ml/min /1.73m ^2 89.6 GFR is calculate d using the CKD-EPI equation. FINAL Gulshan Cali * [facility] a [facility], [address] [address] [id number] 0 05/14 CMP Gluco se mg/dL 74.0 100.0 96 FINAL Gulshan Cali * [facility] a [facility], [address] [facility] [facility] [address] [place] [address] [id number] 05/14 CMP Potas sium mmol/L 3.5 5.1 3.8 FINAL Gulshan Cali * [facility], [address] [facility] [address] [id number] 0 05/14 CMP Sodiu m mmol/L 137.0 145.0 140 FINAL Gulshan Cali * [facility] a [facility], [address] [facility] [address] [id number] 0 05/14 CMP Bilir ubin, total mg/dL 0.2 1.3 0.5 FINAL Gulshan Cali * [facility], [address] [id number] 0 05/14 CMP Total prote in g/dL 6.3 8.2 6.6 FINAL Gulshan Cali * [facility] a [facility], [address] [id number] 0 05/14 LDH panel LDH U/L 120.0 246.0 157 FINAL Gulshan Cali * [facility], [address] [facility] [place] [place] [id number] 0 05/14 CBC w/ auto diff WBC K/uL 3.0 8.9 7.0 FINAL Gulshan Viraj [facility] [place], [address] [place] [id number] 0 Phone: () - 05/14 CBC w/ auto diff HGB g/dL 11.3 15.2 14.2 FINAL Gulshan Viraj [facility] [place], [address] [place] [id number] 0 Phone: () - 05/14 CBC w/ auto diff PLT K/uL 113.0 364.0 407 High FINAL Gulshan Viraj [facility] [place], [address] [place] [id number] 0 Phone: () - 05/14 CBC w/ auto diff Joceline # (ANC) K/uL 1.6 6.6 4.7 FINAL Gulshan Viraj [facility] [place], [address] [place] [id number] 0 Phone: () - 05/14 CBC w/ auto diff Joceline % % 43.0 74.0 67.5 FINAL Gulshan Viraj [facility] [place], [address] [place] [id number] 0 Phone: () - 05/14 CBC w/ auto diff IG % % 0.0 0.5 0.4 FINAL Gulshan Viraj [facility] [place], [address] [place] [id number] 0 Phone: () - 05/14 CBC w/ auto diff IG # K/uL 0.0 0.03 0.03 FINAL Gulshan Viraj [facility] [place], [address] [place] [id number] 0 Phone: () - 05/14 CBC w/ auto diff LY % % 14.0 41.0 17.8 FINAL Gulshan Viraj [facility] [place], [address] [place] [id number] 0 Phone: () - 05/14 CBC w/ auto diff MO % % 6.0 15.0 9.3 FINAL Gulshan Viraj [facility] [place], [address] [place] [id number] 0 Phone: () - 05/14 CBC w/ auto diff EO % % 0.0 7.0 4.0 FINAL Gulshan Viraj [facility] [place], [address] [place] [id number] 0 Phone: () - 05/14 CBC w/ auto diff BA % % 0.0 2.0 1.0 FINAL Gulshan Viraj [facility] [place], [address] [place] [phone] 0 Phone: () - 05/14 CBC w/ auto diff LY # K/uL 0.4 3.6 1.2 FINAL Gulshan Viraj [facility] [place], [address] [place] [id number] 0 Phone: () - 05/14 CBC w/ auto diff MO # K/uL 0.2 1.3 0.7 FINAL Gulshan Viraj [facility] [place], [address] [place] [phone] 0 Phone: () - 05/14 CBC w/ auto diff EO # K/uL 0.0 0.6 0.3 FINAL Gulshan Viraj [facility] [place], [address] [place] [id number] 0 Phone: () - 05/14 CBC w/ auto diff BA # K/uL 0.0 0.2 0.1 FINAL Gulshan Viraj [facility] [place], [address] [place] [id number] 0 Phone: () - 05/14 CBC w/ auto diff NRBC % #/100W BC 0.0 0.2 0.0 FINAL Gulshan [facility] [place], [address] [place] [id number] 0 Phone: () - 05/14 CBC w/ auto diff RBC M/uL 3.9 5.1 4.41 FINAL Gulshan [facility] [place], [address] [place] [id number] 0 Phone: () - 05/14 CBC w/ auto diff HCT % 35.0 48.0 43.6 FINAL Gulshan [facility] [place], [address] [place] [id number] 0 Phone: () - 05/14 CBC w/ auto diff MCV fL 80.0 104.0 98.9 FINAL Gulshan [facility] [place], [address] [facility] [address] [place] [id number] 0 Phone: () - 05/14 CBC w/ auto diff MCH pg 26.0 35.0 32.2 FINAL Gulshan [facility] [place], [address] [place] [id number] 0 Phone: () - 05/14 CBC w/ auto diff MCHC g/dL 30.0 35.0 32.6 FINAL Gulshan [facility] [place], [address] [place] [id number] 0 Phone: () - 05/14 CBC w/ auto diff MPV fL 9.5 13.4 9.9 FINAL Gulshan [facility] [place], [address] [place] [id number] 0 Phone: () - 05/14 CBC w/ auto diff RDW % 11.4 16.1 14.70 FINAL Gulshan Cali [facility] [place], [address] [place] [id number] 0 Phone: 02/04 CBC w/ auto diff WBC K/uL 3.0 8.9 7.3 FINAL Gulshan Viraj [place] [facility] [place] [facility] , [address] [place] [id number] 0 02/04 CBC w/ auto diff HGB g/dL 11.3 15.2 14.6 FINAL Gulshan Viraj [place] [facility] [place] [facility] , [address] [place] [id number] 0 02/04 CBC w/ auto diff PLT K/uL 113.0 364.0 413 High FINAL Gulshan Viraj [place] [facility] [place] [facility] , [address] [place] [id number] 0 02/04 CBC w/ auto diff Joceline # (ANC) K/uL 1.6 6.6 4.6 FINAL Gulshan Viraj [place] [facility] [place] [facility] , [address] [place] [id number] 0 02/04 CBC w/ auto diff Joceline % % 43.0 74.0 62.6 FINAL Gulshan Viraj [place] [facility] [place] [facility] , [address] [place] [id number] 0 02/04 CBC w/ auto diff IG % % 0.0 0.5 0.1 FINAL Gulshan Viraj [place] [facility] [place] [facility] , [address] [place] [id number] 0 02/04 CBC w/ auto diff IG # K/uL 0.0 0.03 0.01 FINAL Gulshan Cali [place] [facility] [place] [facility] , [address] [place] [id number] 0 02/04 CBC w/ auto diff LY % % 14.0 41.0 20.8 FINAL Gulshan Cali [place] [facility] [place] [facility] , [address] [place] [id number] 0 02/04 CBC w/ auto diff MO % % 6.0 15.0 9.6 FINAL Gulshan Cali [place] [facility] [place] [facility] , [address] [place] [id number] 0 02/04 CBC w/ auto diff EO % % 0.0 7.0 5.9 FINAL Gulshan Cali [place] [facility] [place] [facility] , [address] [place] [id number] 0 02/04 CBC w/ auto diff BA % % 0.0 2.0 1.0 FINAL Gulshan Cali [place] [facility] [place] [facility] , [address] [place] [id number] 0 02/04 CBC w/ auto diff LY # K/uL 0.4 3.6 1.5 FINAL Gulshan Cali [place] [facility] [place] [facility] , [address] [place] [id number] 0 02/04 CBC w/ auto diff MO # K/uL 0.2 1.3 0.7 FINAL Gulshan Cali [place] [facility] [place] [facility] , [address] [place] [id number] 0 02/04 CBC w/ auto diff EO # K/uL 0.0 0.6 0.4 FINAL Gulshan Cali [place] [facility] [place] [facility] , [address] [place] [id number] 0 02/04 CBC w/ auto diff BA # K/uL 0.0 0.2 0.1 FINAL Gulshan Viraj [place] [facility] [place] [facility] , [address] [place] [id number] 0 02/04 CBC w/ auto diff NRBC % #/100W BC 0.0 0.2 0.0 FINAL Gulshan Cali [place] [facility] [place] [facility] , [address] [place] [id number] 0 02/04 CBC w/ auto diff RBC M/uL 3.9 5.1 4.45 FINAL Gulshan Cali [place] [facility] [place] [facility] , [address] [place] [id number] 0 02/04 CBC w/ auto diff HCT % 35.0 48.0 45.1 FINAL Gulshan Viraj [place] [facility] [place] [facility] , [address] [place] [id number] 0 02/04 CBC w/ auto diff MCV fL 80.0 104.0 101.3 FINAL Gulshan Viraj [place] [facility] [place] [facility] , [address] [place] [id number] 0 02/04 CBC w/ auto diff MCH pg 26.0 35.0 32.8 FINAL Gulshan Viraj [place] [facility] [place] [facility] , [address] [place] [id number] 0 02/04 CBC w/ auto diff MCHC g/dL 30.0 35.0 32.4 FINAL Gulshan Cali [place] [facility] [place] [facility] , [address] [place] [id number] 0 02/04 CBC w/ auto diff MPV fL 9.5 13.4 10.0 FINAL [facility] , [address] [facility] [address] [facility] [id number] 0 02/04 CBC w/ auto diff RDW % 11.4 16.1 15.10 FINAL [facility] , [address] [facility] [address] [facility] [id number] 0 02/04 CMP Creat inine mg/dL 0.66 1.25 0.90 FINAL Gulshan Cali * [facility] , [address] [facility] [address] [id number] 0 02/04 CMP GFR estim ate ml/min /1.73m ^2 66.0 GFR is calculate d using the CKD-EPI equation. FINAL Gulshan Cali * [facility] , [facility] [address] [id number] 0 02/04 CMP Gluco se mg/dL 74.0 100.0 106 High FINAL Gulshan Cali * [facility] , [facility] [address] [id number] 0 02/04 CMP Potas sium mmol/L 3.5 5.1 4.3 FINAL Gulshan Cali * [facility] , [address] [facility] [address] [id number] 0 02/04 CMP Sodiu m mmol/L 137.0 145.0 138 FINAL Gulshan Cali * [facility] , [address] [facility] [address] [id number] 0 02/04 CMP Bilir ubin, total mg/dL 0.2 1.3 0.6 FINAL Gulshan Cali * [facility] , [address] [facility] [id number] 0 02/04 CMP Total prote in g/dL 6.3 8.2 7.1 FINAL Gulshan Cali * [facility] , [address] [facility] [id number] 0 02/04 CMP Album in g/dL 3.5 5.0 4.4 FINAL Gulshan Cali * [facility] , [address] [facility] [id number] 0 02/04 CMP Alkal ine phosp hatas e U/L 36.0 125.0 92 FINAL Gulshan Cali * [facility] , [address] [facility] [id number] 0 02/04 CMP ALT/S GPT U/L 0.0 34.0 20 FINAL Gulshan Cali * [facility] , [address] [facility] [id number] 0 02/04 CMP AST/S GOT U/L 14.0 36.0 39 High FINAL Gulshan Cali * [facility] , [address] [facility] [id number] 0 02/04 CMP BUN mg/dL 7.0 17.0 20.0 High FINAL Gulshan Cali * [facility] , [address] [facility] [id number] 0 02/04 CMP Calci um mg/dL 8.4 10.2 9.4 FINAL Gulshan Cali * [facility] , [address] [facility] [id number] 0 02/04 CMP Chlor hiwot mmol/L 96.0 107.0 99 FINAL Gulshan Cali * [facility] , [address] [facility] [address] [facility] [id number] 0 02/04 CMP CO2 mmol/L 22.0 30.0 28 The expected total allowable error for CO2 is 5.6%. We have seen up to 10% differenc e in values if reported at the end of the 96 hour stability window. Please consider the clinical significa nce of a 2.0-2.5 mmol/L lower reported CO2 value if reported at the end of the 96 hour stability window. FINAL Gulshan Cali * [facility] , [address] [facility] [address] [facility] [id number] 0 02/04 Lacta te dehyd rogen ase panel LD U/L 120.0 250.0 135 FINAL Gulshan Cali * [facility] [address] [facility] [id number] Medications Date Name Route Dose Frequency Instructions Start Date End Date Status Ascorbic Acid Oral daily active Cholecalciferol Oral Oral 5000.0 U active Calcium Carbonate Oral use as directed acti ve Aspirin Oral Oral 81.0 mg act alex 021 Atorvastatin Oral Oral 10.0 mg 0 21 active 021 Atenolol Oral Oral 50.0 mg 10/03/20 21 active 021 Chlorthalidone Oral Oral 25.0 mg 10/03/20 21 active Problems Diagnosis Status Date of Diagnosi s B-CLL - B-cell chronic lymphocytic leukemia Acti ve 11/02/2021 Vital Signs Date Type Value 05/14/2024 Body Temperature 96.80 05/14/2024 Heart Beat 57.00 05/14/2024 Respiratory Rate 16.00 05/14/2024 Oxygen Saturation 96.00 05/14/2024 BSA 2.06 05/14/2024 Pain Scale 0.00 05/14/2024 Weight 239.60 05/14/2024 Height 62.00 05/14/2024 BMI 43.82 05/14/2024 Intravascular Systolic 132 05/14/2024 Intravascular Diastolic 88 Notes Section * Med Onc Follow-up Note Patient Name: SYLWIA CHAVIS Date Of : 1950 Today's Provider:?Gulshan ISLAS Date of Service:?02/04/2025 Attending Physician:?Gulshan Cali (Medical Oncology) Referring Provider: Jagruti Angelo MD (Family Medicine) HEMATOLOGY/ MEDICAL ONCOLOGY FOLLOW UP VISIT Reason for Visit * SLL.?? Date of diagnosis 10/23/2021.?? Pearson stage I Assessment * SLL.?? * 09/2021: Pt presented with some right flank pain and CT scan showed lymphadenopathy in bilateral axilla retroperitoneal and bilateral iliac regions.?? She had a biopsy from right inguinal lymph node which confirmed diagnosis of SLL.?? * Patient is currently on observation. * Patient returns for planned follow-up.?Patient reports that she is doing well and there has beenno significant change since I last saw her 9 months ago.?On review of systems she denies any palpable??lymphadenopathy??she denies any fever night sweats weight loss.?She denies any pain or disc omfort.?? * Diabetes mellitus type 2 * Patient was diagnosed 2 years ago??in the past. ??Just on diet control now she is on metformin.?? * She has lost some weight intentionally. * Patient reported that her blood sugars have improved??and she has stopped taking metformin she is back on diet control.?? Plan * Patient's CBC??did not show any concerning cytopenias or increased white blood cell count.?Hemoglobin and platelets were normal. * On clinical examination there were no concerning??organomegaly or lymphadenopathy.?? Will continue with * Observation. * Will plan follow-up in 1 year patient was advised to call us in case of any new symptoms Advanced Care Planning Not discussed at this visit. Pain Scale on Today's Visit 5 Pain Plan on Today's Visit No pain plan indicated for today Smoking Status Smoking Tobacco : Never smoker; Smokeless Tobacco : Never used smokeless tobacco; Vaping : Never vaped Depression Screening Tool Status Was screened; Outcome positive: No; Screening Date: 02/04/2025; Screening Tool: PRIME [id number]-PHQ2; Total depression score: 0 History of Present Illness * 09/25/2021:??Patient saw .?? With a 3-day history of right-sided flank pain.?? Pain is described as a dull ache.?? He denies any fever.?? In the past patient has similar pains and she has attributed this to urinary tract infection however this time her symptoms lasted longer.?? Fortunately the symptoms have resolved by the time she is met with Dr. Angelo. * 10/02/[address] scan stone protocol:??There was no urinary tract calculi no hydronephrosis there was mildly enlarged retroperitoneal and pelvic lymph nodes.?? * 10/16/[address] scan chest abdomen pelvis with contrast.?? There were no abnormal mediastinal or hilar adenopathy there was mildly enlarged lymph nodes in both axilla largest in left axilla 2 cm x 1.6 cm.?? Liver and spleen were normal size.?? There were multiple enlarged lymph nodes seen in retroperitoneum along both iliac chain and right inguinal region largest of these along the right external iliac chain measuring 3.9 x 1.5 cm.?? 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 * Patient was started on observation.?? * 05/14/2024 no signs of??progression continue with observation Interval History { } Review of Systems Remaining 14 point comprehensive review of systems within normal limits. NCCN Distress Thermometer and Problem List were collected and documented in the patient chart.?? Remarkable symptoms and concerns were discussed with the patient.?? Any additional follow-up is indicated in the plan. Past Medical and Surgical History * Dyslipidemia * Hypertension Current Medications Medication List Name Date Chlorthalidone Oral 11/02/2021 Vitamin C (Ascorbic Acid Oral) Atenolol Oral 11/02/2021 Calcium Carbonate Oral 11/02/2021 Aspirin Oral 11/02/2021 Cholecalciferol Oral 11/02/2021 Atorvastatin Oral 11/02/2021 Allergies No known medication allergies Family History * Patient's father also had SLL.?? Never required any treatment.?? 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[employer] Vital Signs Blood pressure: 130/102, Pulse: 58, Temperature: 96.8 F, Respirations: 16, O2 sat: 98%, Pain Scale:5, Height: 62 in, Weight: 243.2 lb, BSA: 2.08, BMI: 44.48 kg/m2 Covid-19 vaccine ([email or web address].it) (2023), Patient declined/rejected; Covid-19 vaccine (Pfizer) (11/02/2021), Elsewhere; Covid-19 vaccine (Pfizer) (05/17/2022); Covid- 19 vaccine (Pfizer) (11/02/2021); Covid-19 vaccine (Pfizer) (05/14/2024); Flu vaccine - Adult (11/02/2021), Patient declined/rejected; Flu vaccine - Adult (2023), Patient declined/rejected; Flu vaccine - Adult (2021), Patient declined/rejected; Flu vaccine - Adult (10/28/2023), Patient declined/rejected Performance Status ECOG or Karnofsky ECO Normal activity. Fully active, able to carry on all pre-disease performance without restriction. (Date: 11/02/2021) Karnofsky: Not recorded Physical Exam Pleasant 74-year-old lady appears comfortable no acute distress ECOG performance score 0 HEENT examination normal No palpable lymphadenopathy in the head and neck bilateral axilla or inguinal region Abdomen soft nontender no palpable organomegaly Genetics/Molecular/Biomarkers * B-CLL - B-cell chronic lymphocytic leukemia ( Date of Dx:11/02/2021 ) Lab Results CBC Lab Results 02/04/2025 05/14/2024 10/28/2023 04/28/2023 11/08/20 22 07/20/2022 CBC WBC x 10^3/uL 7.3 7.0 6.9 7.5 8.2 RBC x 10^6/uL 4.45 4.41 4.43 4.50 4.77 NRBC % /100 wbc 0.0 0.0 0.0 0.0 0.0 HGB g/dL 14.6 14.2 14.1 14.4 15.0 HCT % 45.1 43.6 43.8 44.6 46.3 MCV fL 101.3 98.9 98.9 99.1 97.1 MCH pg 32.8 32.2 31.8 32.0 31.4 MCHC g/dL 32.4 32.6 32.2 32.3 32.4 RDW % 15.10 14.70 15.20 15.40 14.60 PLT x 10^3/uL 413 (H) 407 (H) 383 (H) 354 153 MPV fL 10.0 9.9 10.2 10.2 10.2 Platelet, immature, fraction % 10.7 Joceline % 62.6 67.5 64.7 72.1 66.1 LY % 20.8 17.8 18.7 14.7 19.3 MO % 9.6 9.3 10.5 7.4 9.9 EO % 5.9 4.0 4.9 4.6 3.4 IG % 0.1 0.4 0.3 0.1 0.4 Joceline # (ANC) x 10^3/uL 4.6 4.7 4.5 5.4 5.4 BA % 1.0 1.0 0.9 1.1 0.9 MO # x 10^3/uL 0.7 0.7 0.7 0.6 0.8 EO # x 10^3/uL 0.4 0.3 0.3 0.3 0.3 BA # x 10^3/uL 0.1 0.1 0.1 0.1 0.1 IG # x 10^3/uL 0.01 0.03 0.02 0.01 0.03 LY # x 10^3/uL 1.5 1.2 1.3 1.1 1.6 Chemistries Lab Results 02/04/2025 05/14/2024 10/28/2023 04/28/2023 11/08/20 22 07/20/2022 Chemistries Glucose mg/dL 96 105 118 110 BUN mg/dL 20.0 (H) 18.0 14.0 13 Creatinine mg/dL 0.70 0.85 0.78 0.88 Sodium mmol/L 140 144 142 142 Potassium mmol/L 3.8 4.2 3.8 3.9 Chloride mmol/L 98 105 107 102 CO2 mmol/L 27 29 28 25 Calcium mg/dL 9.5 10.0 9.6 10.3 Albumin g/dL 4.3 4.7 4.4 4.7 Total protein g/dL 6.6 6.9 6.7 7.1 Bilirubin, total mg/dL 0.5 0.5 0.5 0.5 Alkaline phosphatase U/L 95 94 92 106 AST/SGOT U/L 37 (H) 17 20 19 ALT/SGPT U/L 20 14 16 15 LDH U/L 157 153 190 183 GFR estimate mL/min/1.73m2 89.6 71.2 79.2 68.7 ? Lab Results 02/04/2025 05/14/2024 10/28/2023 04/28/2023 11/08/2007/20/2022 Anemia Labs Surveys/Consents/Other Discussions JANEL Murillo CC: FAX Jagruti Angelo MD (Referring) Electronically signed by Gulshan ISLAS 02/04/2025 13:18 CDT * Med Onc Follow-up Note Patient Name: SYLWIA CHAVIS Date Of : 1950 Today's Provider:?Gulshan ISLAS Date of Service:?05/14/2024 Attending Physician:?Gulshan Cali (Medical Oncology) Referring Provider: Jagruti Angelo MD (Family Medicine) HEMATOLOGY/ MEDICAL ONCOLOGY FOLLOW UP VISIT Reason for Visit * SLL.?? Date of diagnosis 10/23/2021.?? Pearson stage I Assessment * SLL.?? * Pt presented with some right flank pain and CT scan showed lymphadenopathy in bilateral axilla retroperitoneal and bilateral iliac regions.?? She had a biopsy from right inguinal lymph node which confirmed diagnosis of SLL.?? * Patient is currently on observation. * Patient returns for planned follow-up,??patient reported that she continues to do well and did not had any health concerns today??she denies any fever weight loss night sweats or palpable lymphadenopathy..?? * Diabetes mellitus type 2 * Patient was diagnosed 2 years ago??in the past. ??Just on diet control now she is on metformin.?? * She has lost some weight intentionally. * Patient reported that her blood sugars have improved??and she has stopped taking metformin she is back on diet control.?? Plan * On clinical examination today patient appears well??there is no palpable organomegaly or lymphadenopathy.?? Her labs showed normal hemoglobin platelets and white blood cell count?? * There is no constitutional symptoms.?? * We will continue with observation she will return in 9??months for a follow-up.?? * We discussed the natural history of CLL and rationale for??observation Patient comfortable with recommended plan Advanced Care Planning Not discussed at this visit. Pain Scale on Today's Visit 0 Pain Plan on Today's Visit No pain plan indicated for today's visit Smoking Status Smoking Tobacco : Never smoker; Smokeless Tobacco : Never used smokeless tobacco; Vaping : Never vaped Depression Screening Tool Status Was screened; Outcome positive: No; Screening Date: 05/14/2024; Screening Tool: PRIME MD-PHQ2; Total depression score: 0 History of Present Illness * 09/25/2021:??Patient saw .?? With a 3-day history of right-sided flank pain.?? Pain is described as a dull ache.?? He denies any fever.?? In the past patient has similar pains and she has attributed this to urinary tract infection however this time her symptoms lasted longer.?? Fortunately the symptoms have resolved by the time she is met with Dr. Angelo. * 10/02/[address] scan stone protocol:??There was no urinary tract calculi no hydronephrosis there was mildly enlarged retroperitoneal and pelvic lymph nodes.?? * 10/16/[address] scan chest abdomen pelvis with contrast.?? There were no abnormal mediastinal or hilar adenopathy there was mildly enlarged lymph nodes in both axilla largest in left axilla 2 cm x 1.6 cm.?? Liver and spleen were normal size.?? There were multiple enlarged lymph nodes seen in retroperitoneum along both iliac chain and right inguinal region largest of these along the right external iliac chain measuring 3.9 x 1.5 cm.?? 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 * Patient was started on observation.?? * 05/14/2024 no signs of??progression continue with observation Interval History { } Review of Systems Remaining 14 point comprehensive review of systems within normal limits. NCCN Distress Thermometer and Problem List were collected and documented in the patient chart.?? Remarkable symptoms and concerns were discussed with the patient.?? Any additional follow-up is indicated in the plan. Past Medical and Surgical History * Dyslipidemia * Hypertension Current Medications Medication List Name Date Chlorthalidone Oral 11/02/2021 Vitamin C (Ascorbic Acid Oral) Aspirin Oral 11/02/2021 Atenolol Oral 11/02/2021 Cholecalciferol Oral 11/02/2021 Calcium Carbonate Oral 11/02/2021 Atorvastatin Oral 11/02/2021 Allergies No known medication allergies Family History * Patient's father also had SLL.?? Never required any treatment.?? 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[employer] Vital Signs Blood pressure: 132/88, Pulse: 57, Temperature: 96.8 F, Respirations: 16, O2 sat: 96%, Pain Scale: 0, Height: 62 in, Weight: 239.6 lb, BSA: 2.06, BMI: 43.82 kg/m2 Covid-19 vaccine (Palmap) (05/17/2022); Covid-19 vaccine (Palmap) (11/02/2021), Elsewhere; Covid-19vaccine (Pfizer) (11/02/2021); Covid-19 vaccine (Pfizer) (05/14/2024); Flu vaccine - Adult (11/02/2021), Patient declined/rejected; Flu vaccine - Adult (10/28/2023), Patient declined/rejected; Flu vaccine - Adult (2021), Patient declined/rejected Performance Status ECOG or Karnofsky ECO Normal activity. Fully active, able to carry on all pre-disease performance without restriction. 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 ) Lab Results CBC Lab Results 05/14/2024 10/28/2023 04/28/2023 11/08/2022 07/20/2005/17/2022 CBC WBC x 10^3/uL 7.0 6.9 7.5 8.2 8.2 RBC x 10^6/uL 4.41 4.43 4.50 4.77 4.83 NRBC % /100 wbc 0.0 0.0 0.0 0.0 0.0 HGB g/dL 14.2 14.1 14.4 15.0 15.1 HCT % 43.6 43.8 44.6 46.3 46.4 MCV fL 98.9 98.9 99.1 97.1 96.1 MCH pg 32.2 31.8 32.0 31.4 31.3 MCHC g/dL 32.6 32.2 32.3 32.4 32.5 RDW % 14.70 15.20 15.40 14.60 15.20 PLT x 10^3/uL 407 (H) 383 (H) 354 153 391 (H) MPV fL 9.9 10.2 10.2 10.2 10.4 Platelet, immature, fraction % 10.7 Joceline % 67.5 64.7 72.1 66.1 67.9 LY % 17.8 18.7 14.7 19.3 16.5 MO % 9.3 10.5 7.4 9.9 9.6 EO % 4.0 4.9 4.6 3.4 4.8 IG % 0.4 0.3 0.1 0.4 0.2 Joceline # (ANC) x 10^3/uL 4.7 4.5 5.4 5.4 5.5 BA % 1.0 0.9 1.1 0.9 1.0 MO # x 10^3/uL 0.7 0.7 0.6 0.8 0.8 EO # x 10^3/uL 0.3 0.3 0.3 0.3 0.4 BA # x 10^3/uL 0.1 0.1 0.1 0.1 0.1 IG # x 10^3/uL 0.03 0.02 0.01 0.03 0.02 LY # x 10^3/uL 1.2 1.3 1.1 1.6 1.4 Chemistries Lab Results 05/14/2024 10/28/2023 04/28/2023 11/08/2022 07/20/2005/17/2022 Chemistries Glucose mg/dL 105 118 110 101 BUN mg/dL 18.0 14.0 13 19 Creatinine mg/dL 0.85 0.78 0.88 0.82 Sodium mmol/L 144 142 142 143 Potassium mmol/L 4.2 3.8 3.9 4.6 Chloride mmol/L 105 107 102 104 CO2 mmol/L 29 28 25 28 Calcium mg/dL 10.0 9.6 10.3 10.2 Albumin g/dL 4.7 4.4 4.7 4.6 Total protein g/dL 6.9 6.7 7.1 6.9 Bilirubin, total mg/dL 0.5 0.5 0.5 0.7 Alkaline phosphatase U/L 94 92 106 117 (H) AST/SGOT U/L 17 20 19 22 ALT/SGPT U/L 14 16 15 20 LDH U/L 153 190 183 197 GFR estimate mL/min/1.73m2 71.2 79.2 68.7 75.0 ? Lab Results 05/14/2024 10/28/2023 04/28/2023 11/08/2022 07/20/2005/17/2022 Anemia Labs Reticulocyte count % 1.66 (H) Reticulocyte, absolute x 10^6/mL 0.08 Immature reticulocyte fraction, % 19.30 (H) Reticulocyte cellular hemoglobin pg 35.7 Surveys/Consents/Other Discussions JANEL Murillo CC: FAX Jagruti Angelo MD (Referring) Electronically signed by Gulshan ISLAS 05/14/2024 12:08 CDT
--- OUTSIDE RECORDS SUMMARY | 2025-03-21 01:56 | XMS_ITS | CCD ---
Author Name Interface, [id number] lity Address [address] [place] [id number] Organization [facility] Address [facility] [address] [address] Care Team Providers Care Director Of Billing Name Role Phone Gulshan Cali Unavailable Unavailable Allergies and Adverse Reactions Care Plan Reason for Visit Encounters Functional Status Immunizations Diagnostic Results Medications Procedures Social History Vital Signs
--- OUTSIDE RECORDS SUMMARY | 2025-03-21 01:56 | XMS_ITS ---
Author Name Interface, [id number] lity Address [address] [facility] [address] [address] [facility] Address [address] [facility] [address] [address] Care Team Providers Care Shoe Cutter Name Role Phone Gulshan Cali Unavailable Unavailable Allergies and Adverse Reactions Medication/Group Name Reaction Severity Date No known allergies Plan Date Type Value 02/04/2025 APPOINTMENT OV 20 MIN 02/04/2025 APPOINTMENT LAB 15 MIN 02/04/2025 LABORDER CMP 02/04/2025 LABORDER CBC w/ auto diff 02/04/2025 LABORDER LDH panel Reason for Visit LAB 15 MIN Encounters Date Name 02/04/2025 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 Diagnostic Results Date Type Test Units Lower Limit Upper Limit Result Flag Comments Status Ordered By Specimen Source Lab Address 02/04 CBC w/ auto diff WBC K/uL 3.0 8.9 7.3 FINAL Gulshan Calimaria t Darnellkristian [facility] , [address] [facility] [phone] 0 02/04 CBC w/ auto diff HGB g/dL 11.3 15.2 14.6 FINAL Gulshan Calimaria t Darnellkristian [facility] [place] [facility] , [address] [place] [id number] 0 02/04 CBC w/ auto diff PLT K/uL 113.0 364.0 413 High FINAL Gulshan Viraj [place] [facility] [place] [facility] , [address] [facility] [id number] 0 02/04 CBC w/ auto diff Joceline # (ANC) K/uL 1.6 6.6 4.6 FINAL Gulshan Viraj [place] [facility] [place] [facility] , [address] [place] [id number] 0 02/04 CBC w/ auto diff Joceline % % 43.0 74.0 62.6 FINAL Gulshan Viraj [place] [facility] [place] [facility] , [address] [place] [id number] 0 02/04 CBC w/ auto diff IG % % 0.0 0.5 0.1 FINAL Gulshan Cali [place] [facility] [place] [facility] , [address] [place] [id number] 0 02/04 CBC w/ auto diff IG # K/uL 0.0 0.03 0.01 FINAL Gulshan Viraj [place] [facility] [place] [facility] , [address] [place] [id number] 0 02/04 CBC w/ auto diff LY % % 14.0 41.0 20.8 FINAL Gulshan Viraj [place] [facility] [place] [facility] , [address] [place] [id number] 0 02/04 CBC w/ auto diff MO % % 6.0 15.0 9.6 FINAL Gulshan Viraj [place] [facility] [place] [facility] , [address] [place] [id number] 0 02/04 CBC w/ auto diff EO % % 0.0 7.0 5.9 FINAL Gulshan Cali [place] [facility] [place] [facility] , [address] [place] [id number] 0 02/04 CBC w/ auto diff BA % % 0.0 2.0 1.0 FINAL Gulshan Viraj [place] [facility] [place] [facility] , [address] [place] [id number] 0 02/04 CBC w/ auto diff LY # K/uL 0.4 3.6 1.5 FINAL Gulshan Viraj [place] [facility] [place] [facility] , [address] [place] [id number] 0 02/04 CBC w/ auto diff MO # K/uL 0.2 1.3 0.7 FINAL Gulshan Viraj [place] [facility] [place] [facility] , [address] [place] [id number] 0 02/04 CBC w/ auto diff EO # K/uL 0.0 0.6 0.4 FINAL Gulshan Viraj [place] [facility] [place] [facility] , [address] [place] [id number] 0 02/04 CBC w/ auto diff BA # K/uL 0.0 0.2 0.1 FINAL Gulshan Viraj [place] [facility] [place] [facility] , [address] [place] [id number] 0 02/04 CBC w/ auto diff NRBC % #/100W BC 0.0 0.2 0.0 FINAL Gulshan Cali [place] [facility] [place] [facility] , [address] [place] [id number] 0 02/04 CBC w/ auto diff RBC M/uL 3.9 5.1 4.45 FINAL Gulshan Viraj [place] [facility] [place] [facility] , [address] [place] [id number] 0 02/04 CBC w/ auto diff HCT % 35.0 48.0 45.1 FINAL Gulshan Viraj [place] [facility] [place] [facility] , [address] [place] [id number] 0 02/04 CBC w/ auto diff MCV fL 80.0 104.0 101.3 FINAL Gulshan Viraj [place] [facility] [place] [facility] , [address] [place] [id number] 0 02/04 CBC w/ auto diff MCH pg 26.0 35.0 32.8 FINAL Gulshan Viraj [place] [facility] [place] [facility] , [address] [place] [id number] 0 02/04 CBC w/ auto diff MCHC g/dL 30.0 35.0 32.4 FINAL Gulshan Viraj [place] [facility] [place] [facility] , [address] [place] [phone] 0 02/04 CBC w/ auto diff MPV fL 9.5 13.4 10.0 FINAL Gulshan Viraj [place] [facility] [place] [facility] , [address] [place] [id number] 0 02/04 CBC w/ auto diff RDW % 11.4 16.1 15.10 FINAL Gulshan Viraj [place] [facility] [place] [facility] , [address] [place] [phone] 0 02/04 CMP Creat inine mg/dL 0.66 1.25 0.90 FINAL Gulshan Cali * [facility] , [address] [facility] [phone] 0 02/04 CMP GFR estim ate ml/min /1.73m ^2 66.0 GFR is calculate d using the CKD-EPI equation. FINAL Gulshan Cali * [facility] , [address] [facility] [id number] 0 02/04 CMP Gluco se mg/dL 74.0 100.0 106 High FINAL Gulshan Cali * [facility] , [address] [facility] [id number] 0 02/04 CMP Potas sium mmol/L 3.5 5.1 4.3 FINAL Gulshan Cali * [facility] , [address] [facility] [id number] 0 02/04 CMP Sodiu m mmol/L 137.0 145.0 138 FINAL Gulshan Cali * [facility] , [address] [facility] [id number] 0 02/04 CMP Bilir ubin, total mg/dL 0.2 1.3 0.6 FINAL Gulshan Cali * [facility] , [address] [facility] [id number] 0 02/04 CMP Total prote in g/dL 6.3 8.2 7.1 FINAL Gulshan Cali * [facility] , [address] [facility] [id number] 0 02/04 CMP Album in g/dL 3.5 5.0 4.4 FINAL Gulshan Cali * [facility] , [address] [facility] [id number] 0 02/04 CMP Alkal ine phosp hatas e U/L 36.0 125.0 92 FINAL Gulshan Cali * [facility] , [address] [facility] [id number] 0 02/04 CMP ALT/S GPT U/L 0.0 34.0 20 FINAL Gulshan Cali * [facility] , [address] [facility] [id number] 0 02/04 CMP AST/S GOT U/L 14.0 36.0 39 High FINAL Gulshan Cali * [facility] , [address] [facility] [id number] 0 02/04 CMP BUN mg/dL 7.0 17.0 20.0 High FINAL Gulshan Cali * [facility] , [address] [facility] [id number] 0 02/04 CMP Calci um mg/dL 8.4 10.2 9.4 FINAL Gulshan Cali * [facility] , [address] [facility] [id number] 0 02/04 CMP Chlor hiwot mmol/L 96.0 107.0 99 FINAL Gulshan Cali * [facility] , [address] [facility] [id number] 0 02/04 CMP CO2 mmol/L 22.0 30.0 [...] hour stability window. FINAL Gulshan Cali * [facility] , [address] [facility] [id number] 0 02/04 Lacta te dehyd rogen ase panel LD U/L 120.0 250.0 135 FINAL Gulshan Cali * [facility] [address] [facility] [id number] 4 Medications Date Name Route Dose Frequency [...] B-cell chronic lymphocytic leukemia Acti ve 11/02/2021 Notes Section * Med Onc Follow-up Note [...] positive: No; Screening Date: 02/04/2025; Screening Tool: MD-PHQ2; Total depression score: 0 History of [...] 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
[2025-03-21 02:02] LABS: Slide Review Reflex No
[2025-03-21 02:05] LABS: Albumin* 4.4 g/dL (3.3-5.0); Chloride* 99 mmol/L (96-114); Sodium* 136 mmol/L (135-149)
[2025-03-21] MEDS: ONDANSETRON 2 MG/ML inj 4 MG IVP (02:05)
[2025-03-21 02:06] VITALS: BP 138/94; PULSE 85; RESP 18; O2SAT 94
[2025-03-21 02:06] LABS: Appearance Urine Cloudy (Clear); Bilirubin Urine Negative (Negative); Blood Urine Trace-intact (Negative); Color Urine Yellow (Yellow); Glucose Urine Negative (Negative); Ketones Urine Negative (Negative); Leukocyte Esterase Urine 2+ (Negative); Nitrite Urine Negative (Negative); Protein Urine Negative (Negative); Specific Gravity Urine 1.015 (1.000-1.030)
[2025-03-21 02:08] VITALS: BP 145/95; PULSE 84; RESP 18; TEMP 37.2; O2SAT 95
[2025-03-21 02:08] LABS: Alanine Aminotransferase* 20 U/L (4-35); Alkaline Phosphatase* 94 U/L (40-150); Anion Gap 8 mEq/L (7-15); Aspartate Amino Transferase* 30 U/L (12-35); Bilirubin Direct* 0.4 mg/dL (0.0-0.5); Bilirubin Total* 1.2 mg/dL (0.1-1.5); Blood Urea Nitrogen* 18 mg/dL (7-30); Calcium* 9.6 mg/dL (8.4-10.6); Carbon Dioxide* 29 mmol/L (20-32); Creatinine* 0.7 mg/dL (0.5-1.5); Est. Creatinine Clearance* 34.38; Estimated Glomerular Filt Rate 90 ml/min; Glucose* 131 mg/dL (60-115); Total Protein* 7.3 g/dL (6.0-8.3)
[2025-03-21 02:14] LABS: Amorphous Sediment Urine Few; Bacteria Urine Moderate; RBC Urine 0-2 (0-2); Squamous Epithelial Cell Urine Moderate (None-Few)
[2025-03-21 02:18] LABS: Lipase* 224 U/L (23-300)
[2025-03-21 02:22] LABS: C Reactive Protein* 5.3 mg/dL (0.5-1.0)
[2025-03-21] MEDS: PANTOPRAZOLE SODIUM 40 MG INJ IVP (02:38)
[2025-03-21] MEDS: GI COCKTAIL (VISC LIDO/ANTACID) 30 ML PO (02:38)
[2025-03-21 02:43] VITALS: BP 145/95; PULSE 84; RESP 18; TEMP 37.2
== END 2025-03-21 02:43 | disposition home or self-care (01) ==
PROVIDERS: Emergency Provider Emergency Medicine; PCP Family Medicine
DX: K29.80 Duodenitis without bleeding (principal)
CPT/HCPCS: 36415; 74177; 80048; 80076; 81001; 82565; 83605; 83690; 85025; 86140; 87086; 94761; 96374; 96375; 99284; A9270; J1885; J2405; J2470; J7030; Q9967